=== PATIENT | female | born 1995 | race Caucasian/White ===

== ENCOUNTER 2016-12-28 18:50 | Observation (INO) | payer BC, OTHER ==
[2016-12-28] MEDS ORDERED: SODIUM CHLORIDE 0.9% 1,000 ML IV STA ×2 (20:06)
[2016-12-28] MEDS ORDERED: ONDANSETRON 4 MG/2 ML VIAL IVP STA (20:06)
[2016-12-28] MEDS ORDERED: KETOROLAC 30 MG/ML 1 ML VIAL IVP STA (20:06)
[2016-12-28 20:20] LABS: Basophils # (A) 0.1 k/uL (0-0.2); Basophils % (A) 1 %; CH 30.9; CHCM 33.2; Eosinophils # (A) 0.2 k/uL (0-0.7); Eosinophils % (A) 2 %; HDW 1.98; HGB 14.3 gm/dL (11.4-16.0); Luc # (Auto) 0.16; Luc % (Auto) 2; Lymphocytes # (A) 1.9 k/uL (1.0-4.8); Lymphocytes % (A) 19 %; MCH 29.7 pg (25.0-35.0); MCHC 31.7 g/dL (31.0-37.0); MCV 93.5 fL (80.0-100.0); Mean Platelet Volume 7.7; Monocytes # (A) 0.6 k/uL (0-1.0); Monocytes % (A) 6 %; Neutrophils # (A) 7.2 k/uL (1.3-7.7); Neutrophils % (A) 71 %; RBC 4.81 m/uL (3.80-5.40); RDW 13.2 % (11.5-15.5); WBC 10.1 k/uL (3.8-10.6); WBC (Perox) 10.21
[2016-12-28 20:30] LABS: ALT 46 U/L (9-52); AST 43 U/L (14-36); Alkaline Phosphatase 60 U/L (38-126); Amylase 53 U/L (30-110); Anion Gap 10 mmol/L; Blood Urea Nitrogen 7 mg/dL (7-17); Carbon Dioxide 26 mmol/L (22-30); Chloride 102 mmol/L (98-107); Glucose 85 mg/dL (74-99); INR 1.2 (<1.2); Non-African American GFR(MDRD) >60 (>60 ml/min/1.73 sqM); Partial Thromboplastin Time 26.2 sec (22.0-30.0); Potassium 4.1 mmol/L (3.5-5.1); Prothrombin Time 11.9 sec (9.0-12.0); Sodium 138 mmol/L (137-145); Total Bilirubin 0.5 mg/dL (0.2-1.3); Total Protein 8.2 g/dL (6.3-8.2)
[2016-12-28 20:58] LABS: Appearance,Urine Clear (Clear); Bilirubin,Urine Negative (Negative); Glucose,Urine (UA) Negative (Negative); Ketones,Urine Negative (Negative); Leukocyte Esterase,Urine Negative (Negative); Nitrite,Urine Negative (Negative); PH, Urine 5.5 (5.0-8.0); Protein,Urine Negative (Negative); Specific Gravity,Urine 1.001 (1.001-1.035); UA Billing (MACRO vs. MICRO) CHEM; Urobilinogen,Urine <2.0 mg/dL (<2.0)
--- NOTE | 2016-12-28 21:12 | ED ---
Abdominal Pain HPI <Jerry Houston - Last Filed: 12/28/16 23:10> - General Source: patient, RN notes reviewed, old records reviewed Mode of arrival: ambulatory Limitations: no limitations <Kaley Pizano - Last Filed: 12/29/16 07:02> - General Chief Complaint: Abdominal Pain Stated Complaint: Abdominal Pain Time Seen by Provider: 12/28/16 20:00 - History of Present Illness Initial Comments: Patient is a 21-year-old female presents emergency Department chief complaint of right lower quadrant cramping abdominal pain for the past 2 weeks. Patient reports she also notes she's had a headache and that is what brought her into the emergency department. She reports she's had multiple doses of vomiting and a few episodes of diarrhea. She reports that she is gluten intolerant has been watching her diet. Patient denies any fevers or chills. She denies any chest interest breath or coughing. (Kaley Pizano) - Related Data Home Medications Medication Instructions Recorded Confirmed Ciprofloxacin HCl [Cipro] 500 mg PO Q12HR 12/28/16 12/29/16 Citalopram Hydrobromide [CeleXA] 20 mg PO BID 12/28/16 12/29/16 Dextroamphetamine/Amphetamine 10 mg PO QAM 12/28/16 12/29/16 [Adderall Xr] LORazepam [Ativan] 0.5 mg PO DAILY PRN 12/28/16 12/29/16 metroNIDAZOLE [Flagyl] 500 mg PO TID 12/28/16 12/29/16 Allergies Allergy/AdvReac Type Severity Reaction Status Date / Time Sulfa (Sulfonamide Allergy Rash/Hives Verified 12/28/16 20:49 Antibiotics) Review of Systems ROS Other: All systems not noted in ROS Statement are negative. <Jerry Houston - Last Filed: 12/28/16 23:10> ROS Other: All systems not noted in ROS Statement are negative. <Kaley Pizano - Last Filed: 12/29/16 07:02> ROS Statement: Those systems with pertinent positive or pertinent negative responses have been documented in the HPI. Past Medical History Past Medical History: No Reported History History of Any Multi-Drug Resistant Organisms: None Reported Past Surgical History: Cholecystectomy Past Psychological History: Anxiety, Depression Smoking Status: Never smoker Past Alcohol Use History: Occasional Past Drug Use History: None Reported - Past Family History Father Family Medical History: Diabetes Mellitus, Hypertension <Kaley Pizano - Last Filed: 12/29/16 07:02> General Exam <Jerry Houston - Last Filed: 12/28/16 23:10> Limitations: no limitations General appearance: alert, in no apparent distress Head exam: Present: atraumatic, normocephalic, normal inspection Eye exam: Present: normal appearance, PERRL, EOMI. Absent: scleral icterus, conjunctival injection, periorbital swelling ENT exam: Present: normal exam, mucous membranes moist Neck exam: Present: normal inspection. Absent: tenderness, meningismus, lymphadenopathy Respiratory exam: Present: normal lung sounds bilaterally. Absent: respiratory distress, wheezes, rales, rhonchi, stridor Cardiovascular Exam: Present: regular rate, normal rhythm, normal heart sounds. Absent: systolic murmur, diastolic murmur, rubs, gallop, clicks GI/Abdominal exam: Present: soft, tenderness (minimal RLQ tenderness. No rebound tenderness. ), normal bowel sounds. Absent: distended, guarding, rebound, rigid Extremities exam: Present: normal inspection, full ROM, normal capillary refill. Absent: tenderness, pedal edema, joint swelling, calf tenderness Back exam: Present: normal inspection Neurological exam: Present: alert, oriented X3, CN II-XII intact Psychiatric exam: Present: normal affect, normal mood Skin exam: Present: warm, dry, intact, normal color. Absent: rash <Kaley Pizano - Last Filed: 12/29/16 07:02> - General Exam Comments Initial Comments: This is a well-appearing 21-year-old female. No acute distress. (Kaley Pizano) Medical Decision Making - Lab Data Result diagrams: 12/28/16 20:10 12/28/16 20:10 <Jerry Houston - Last Filed: 12/28/16 23:10> - Lab Data Result diagrams: 12/28/16 20:10 12/28/16 20:10 - Radiology Data Radiology results: report reviewed <Kaley Pizano - Last Filed: 12/29/16 07:02> - Medical Decision Making Patient reevaluated by myself, Dr. Houston. Patient resting comfortably in bed. Patient does have mild tenderness right lower quadrant. Computed tomography scan shows possible appendicitis. Case was discussed in detail with Dr. Srinivasan, who will admit for Dr. Lyon. (Jerry Houston) Patient is a 21-year-old female presents emergency Department chief complaint of right lower quadrant cramping abdominal pain for the past 2 weeks. Patient reports she also notes she's had a headache and that is what brought her into the emergency department. Patient given IV fluids and toradol. She was reevaluated and reports pain is somewhat better, however patient is still mildly tender on exam. Discussed possible etiology could be ocarian in nature. Patient lab work was reviewed, negative for any abnormalities. However, due to the tenderness, CT abdomen andpelvis ordered. Results show possible appendicitis. Again, patient has had symptoms for 2 weeks, and is minimally tender on exam. Discussed with Dr. Houston, whom examined the patient. Patient will be admitted to Dr. Rich, whom admits for Dr. Lyon. Patient will remain NPO. Patient admitted for IV hydration, and pain control. At this time due to negative WBC and being afebrile, we will defer antibiotics until seen by surgery. (Kaley Pizano) - Lab Data Lab Results 12/28/16 12/28/16 12/28/16 Range/Units 20:10 20:10 20:10 WBC 10.1 (3.8-10.6) k/uL RBC 4.81 (3.80-5.40) m/uL Hgb 14.3 (11.4-16.0) gm/dL Hct 45.0 (34.0-46.0) % MCV 93.5 (80.0-100.0) fL MCH 29.7 (25.0-35.0) pg MCHC 31.7 (31.0-37.0) g/dL RDW 13.2 (11.5-15.5) % Plt Count 359 (150-450) k/uL Neutrophils % 71 % Lymphocytes % 19 % Monocytes % 6 % Eosinophils % 2 % Basophils % 1 % Neutrophils # 7.2 (1.3-7.7) k/uL Lymphocytes # 1.9 (1.0-4.8) k/uL Monocytes # 0.6 (0-1.0) k/uL Eosinophils # 0.2 (0-0.7) k/uL Basophils # 0.1 (0-0.2) k/uL PT 11.9 (9.0-12.0) sec INR 1.2 H (<1.2) APTT 26.2 (22.0-30.0) sec Sodium 138 (137-145) mmol/L Potassium 4.1 (3.5-5.1) mmol/L Chloride 102 (98-107) mmol/L Carbon Dioxide 26 (22-30) mmol/L Anion Gap 10 mmol/L BUN 7 (7-17) mg/dL Creatinine 0.93 (0.52-1.04) mg/dL Est GFR (MDRD) Af Amer >60 (>60 ml/min/1.73 sqM) Est GFR (MDRD) Non-Af >60 (>60 ml/min/1.73 sqM) Glucose 85 (74-99) mg/dL Calcium 10.0 (8.4-10.2) mg/dL Total Bilirubin 0.5 (0.2-1.3) mg/dL AST 43 H (14-36) U/L ALT 46 (9-52) U/L Alkaline Phosphatase 60 (38-126) U/L Total Protein 8.2 (6.3-8.2) g/dL Albumin 4.8 (3.5-5.0) g/dL Amylase 53 (30-110) U/L Lipase 96 (23-300) U/L Urine Color Urine Appearance (Clear) Urine pH (5.0-8.0) Ur Specific [place] (1.001-1.035) Urine Protein (Negative) Urine Glucose (UA) (Negative) Urine Ketones (Negative) Urine Blood (Negative) Urine Nitrite (Negative) Urine Bilirubin (Negative) Urine Urobilinogen (<2.0) mg/dL Ur Leukocyte Esterase (Negative) Urine HCG, Qual (Not Detectd) 12/28/16 12/28/16 Range/Units 20:17 20:17 WBC (3.8-10.6) k/uL RBC (3.80-5.40) m/uL Hgb (11.4-16.0) gm/dL Hct (34.0-46.0) % MCV (80.0-100.0) fL MCH (25.0-35.0) pg MCHC (31.0-37.0) g/dL RDW (11.5-15.5) % Plt Count (150-450) k/uL Neutrophils % % Lymphocytes % % Monocytes % % Eosinophils % % Basophils % % Neutrophils # (1.3-7.7) k/uL Lymphocytes # (1.0-4.8) k/uL Monocytes # (0-1.0) k/uL Eosinophils # (0-0.7) k/uL Basophils # (0-0.2) k/uL PT (9.0-12.0) sec INR (<1.2) APTT (22.0-30.0) sec Sodium (137-145) mmol/L Potassium (3.5-5.1) mmol/L Chloride (98-107) mmol/L Carbon Dioxide (22-30) mmol/L Anion Gap mmol/L BUN (7-17) mg/dL Creatinine (0.52-1.04) mg/dL Est GFR (MDRD) Af Amer (>60 ml/min/1.73 sqM) Est GFR (MDRD) Non-Af (>60 ml/min/1.73 sqM) Glucose (74-99) mg/dL Calcium (8.4-10.2) mg/dL Total Bilirubin (0.2-1.3) mg/dL AST (14-36) U/L ALT (9-52) U/L Alkaline Phosphatase (38-126) U/L Total Protein (6.3-8.2) g/dL Albumin (3.5-5.0) g/dL Amylase (30-110) U/L Lipase (23-300) U/L Urine Color Light Yellow Urine Appearance Clear (Clear) Urine pH 5.5 (5.0-8.0) Ur Specific [place] 1.001 (1.001-1.035) Urine Protein Negative (Negative) Urine Glucose (UA) Negative (Negative) Urine Ketones Negative (Negative) Urine Blood Negative (Negative) Urine Nitrite Negative (Negative) Urine Bilirubin Negative (Negative) Urine Urobilinogen <2.0 (<2.0) mg/dL Ur Leukocyte Esterase Negative (Negative) Urine HCG, Qual Not Detected (Not Detectd) - Radiology Data Nonacute abdomen. No evidence of intestinal obstruction or pneumoperitoneum. The appendix is visualized. The distal portion of the appendix is mildly prominent in caliber at 8 mm. The lumen of the apex appendix is opacified. No periappendiceal inflammatory changes seen. Appendix is seen images 20 for 3:30 with prominent portion of the distal appendix seen on image 24. Meningitis findings are equivocal for appendicitis. Clinical correlation is needed. ( Kaley Pizano) Disposition <Jerry Houston - Last Filed: 12/28/16 23:10> Time of Disposition: 23:13 <Kaley Pizano - Last Filed: 12/29/16 07:02> Clinical Impression: Abdominal pain Disposition: ADMITTED IP TO THIS HOSP Condition: Stable
--- NOTE | 2016-12-28 21:18 | XR ---
EXAMINATION TYPE: XR KUB DATE OF EXAM: 12/28/2016 COMPARISON: NONE HISTORY: Right upper quadrant pain TECHNIQUE: 2 views FINDINGS: There is no sign of intestinal obstruction or pneumoperitoneum. Fecal pattern is normal. Demi ng bases are clear. There are no pathologic calcifications over the kidneys. IMPRESSION: Nonacute abdomen.
[2016-12-28] MEDS ORDERED: RX INFO: IV CONTRAST WAS GIVEN 1 EACH MISC MISCELLANE PRN (21:53)
--- NOTE | 2016-12-28 22:55 | CT ---
EXAM: CT Abdomen and Pelvis With Intravenous Contrast CLINICAL HISTORY: Reason: Pain TECHNIQUE: Axial computed tomography images of the abdomen and pelvis with intravenous contrast. DLP is 409.30 mGy-cm. This CT exam was performed using one or more of the following dose reduction techniques: automated exposure control, adjustment of the mA and/or kV according to patient size, and/or use of iterative reconstruction technique. COMPARISON: The only previous exam is a plain film from same date. FINDINGS: Cholecystectomy. Possible focal fat in region of falciform ligament. No evidence for acute pancreatitis or other significant abnormality of the solid abdominal viscera is appreciated. Suspected ovarian follicles. No bowel obstruction. There is prominent fluid in the GI tract including the colon. May represent findings of enteritis/diarrheal illness. The appendix is visualized. The distal portion of the appendix is mildly prominent in caliber at about 8 mm. Lumen of the appendix is opacified. No periappendiceal inflammatory changes seen. IMPRESSION: The appendix is visualized. The distal portion of the appendix is mildly prominent in caliber at about 8 mm. Lumen of appendix is opacified. No periappendiceal inflammatory changes seen. Appendix is seen on images 24 through 30 coronal with the prominent portion of the distal appendix seen on image 24. Imaging findings are equivocal for appendicitis. Clinical correlation is needed. No bowel obstruction. There is prominent fluid in the GI tract including the colon. May represent findings of enteritis/diarrheal illness. [employer] 12/28/16 23:01 Verify Receipt Verified receipt with BILL Rai, given to aKley LEDESMA on 12/28 23:00 (-04:00)
[2016-12-28] MEDS ORDERED: LORazepam 2 MG/ML SYRINGE IV PRN (23:14)
[2016-12-28] MEDS ORDERED: MORPHINE SULFATE 4 MG/ML SYRINGE IV PRN (23:14)
[2016-12-28] MEDS ORDERED: ONDANSETRON 4 MG/2 ML VIAL IVP PRN (23:14)
[2016-12-28] MEDS ORDERED: NALOXONE 0.4 MG/ML 1 ML VIAL IV PRN (23:14)
[2016-12-28] MEDS ORDERED: SODIUM CHLORIDE 0.9% 1,000 ML IV SCH (23:15)
[2016-12-29 00:33] VITALS: BMI 24.6
[2016-12-29] MEDS: KETOROLAC 30 MG/ML 1 ML VIAL IVP PRN ×2 (05:54→11:40)
[2016-12-29] MEDS ORDERED: ACETAMINOPHEN IV (For NPO) 1,000 MG in EMPTY BAG 1 BAG IVPB ONE (07:11)
[2016-12-29] MEDS ORDERED: HEPARIN SODIUM,PORCINE 5,000 UNIT/ML 1 ML VIAL SQ ONE (07:11)
[2016-12-29] MEDS ORDERED: ceFAZolin 2 GM in SODIUM CHLORIDE 0.9% 100 ML IVPB ONE (07:11)
[2016-12-29] MEDS ORDERED: IV FLUID CONTINUATION 1,000 ML IV ONE (08:14)
--- NOTE | 2016-12-29 08:14 | P.GSHP ---
History of Present Illness H&P Date: 12/29/16 CHIEF COMPLAINT: Right lower quadrant abdominal pain for 2 weeks. HISTORY OF PRESENT ILLNESS: The patient is a previously healthy 21-year-old female who presents of right lower quadrant abdominal pain. She had seen her primary care provider who placed her on Flagyl antibiotic for presumed colitis. Her pain had become worse and she presented to the emergency room. Additional diagnostic studies were performed. She presented with CT abdomen and pelvis consistent with dilated appendix suspicious for appendicitis hence general surgery admission. PAST MEDICAL HISTORY: See list. PAST SURGICAL HISTORY: See list. CURRENT MEDICATIONS: See list. ALLERGIES: DENIES. SOCIAL HISTORY: Non-tobacco user. FAMILY HISTORY: Previous history of colitis. REVIEW OF ORGAN SYSTEMS: CONSTITUTIONAL: Denies any fever or chills. HEENT: Denies any trouble with vision, hearing or nosebleeds. No difficulty swallowing. LYMPHATIC: The patient denies any lumps and bumps around the neck. ENDOCRINE: Denies any thyroid disorders. Denies any blood sugar glucose intolerance. RESPIRATORY: Denies shortness of breath including chronic cough. CARDIOVASCULAR: Denies history of chest pain with exertion. GASTROINTESTINAL: Denies regurgitation of bile at night as well as intermittent nausea. No blood in stools. GENITOURINARY: Denies any blood in urine or increased urinary frequency. MUSCULOSKELETAL: Has current joint arthritis. NEUROLOGIC: Denies any numbness or tingling along the distal extremities. No seizure disorders or headaches. PSYCHIATRIC: Has depression. No suicidal ideation. Has ADHD. HEMATOLOGIC: Denies any abnormal bleeding or bruising. PHYSICAL EXAMINATION: Vital Signs Temp 98.3 F 12/29/16 07:10 Pulse 64 12/29/16 07:10 Resp 18 12/29/16 07:10 BP 114/58 12/29/16 07:10 Pulse Ox 100 12/29/16 07:10 Intake & Output 12/28/16 12/29/16 12/29/16 18:59 06:59 18:59 Output Total 200 Balance -200 Weight 65.771 kg 67.132 kg Output: Urine 200 Other: # Voids 1 GENERAL: Well developed and in no acute distress. Pleasant. HEENT: No sclera icterus. Extraocular movements grossly intact. Moist buccal mucosa. Head is atraumatic, normocephalic. Hears conversational speech. No nasal drainage. NECK: Supple without lymphadenopathy. No JV distention. CHEST: Non-labored respirations and equal bilateral excursions. CARDIOVASCULAR: Regular rate and rhythm. Palpable 2+ radial pulses. ABDOMEN: Soft, tender at the right lower quadrant. No peritonitis. MUSCULOSKELETAL: No clubbing, cyanosis or edema. NEUROLOGIC: No focal or lateralizing signs. PSYCH: Appropriate affect. Alert and oriented to person, place and time. LABS: Laboratory Last Values WBC 10.1 k/uL (3.8-10.6) 12/28/16 20:10 RBC 4.81 m/uL (3.80-5.40) 12/28/16 20:10 Hgb 14.3 gm/dL (11.4-16.0) 12/28/16 20:10 Hct 45.0 % (34.0-46.0) 12/28/16 20:10 MCV 93.5 fL (80.0-100.0) 12/28/16 20:10 MCH 29.7 pg (25.0-35.0) 12/28/16 20:10 MCHC 31.7 g/dL (31.0-37.0) 12/28/16 20:10 RDW 13.2 % (11.5-15.5) 12/28/16 20:10 Plt Count 359 k/uL (150-450) 12/28/16 20:10 Neutrophils % 71 % 12/28/16 20:10 Lymphocytes % 19 % 12/28/16 20:10 Monocytes % 6 % 12/28/16 20:10 Eosinophils % 2 % 12/28/16 20:10 Basophils % 1 % 12/28/16 20:10 Neutrophils # 7.2 k/uL (1.3-7.7) 12/28/16 20:10 Lymphocytes # 1.9 k/uL (1.0-4.8) 12/28/16 20:10 Monocytes # 0.6 k/uL (0-1.0) 12/28/16 20:10 Eosinophils # 0.2 k/uL (0-0.7) 12/28/16 20:10 Basophils # 0.1 k/uL (0-0.2) 12/28/16 20:10 PT 11.9 sec (9.0-12.0) 12/28/16 20:10 INR 1.2 (<1.2) H 12/28/16 20:10 APTT 26.2 sec (22.0-30.0) 12/28/16 20:10 Sodium 138 mmol/L (137-145) 12/28/16 20:10 Potassium 4.1 mmol/L (3.5-5.1) 12/28/16 20:10 Chloride 102 mmol/L (98-107) 12/28/16 20:10 Carbon Dioxide 26 mmol/L (22-30) 12/28/16 20:10 Anion Gap 10 mmol/L 12/28/16 20:10 BUN 7 mg/dL (7-17) 12/28/16 20:10 Creatinine 0.93 mg/dL (0.52-1.04) 12/28/16 20:10 Est GFR (MDRD) Af Amer >60 (>60 ml/min/1.73 sqM) 12/28/16 20:10 Est GFR (MDRD) Non-Af >60 (>60 ml/min/1.73 sqM) 12/28/16 20:10 Glucose 85 mg/dL (74-99) 12/28/16 20:10 Calcium 10.0 mg/dL (8.4-10.2) 12/28/16 20:10 Total Bilirubin 0.5 mg/dL (0.2-1.3) 12/28/16 20:10 AST 43 U/L (14-36) H 12/28/16 20:10 ALT 46 U/L (9-52) 12/28/16 20:10 Alkaline Phosphatase 60 U/L (38-126) 12/28/16 20:10 Total Protein 8.2 g/dL (6.3-8.2) 12/28/16 20:10 Albumin 4.8 g/dL (3.5-5.0) 12/28/16 20:10 Amylase 53 U/L (30-110) 12/28/16 20:10 Lipase 96 U/L (23-300) 12/28/16 20:10 Urine Color Light Yellow 12/28/16 20:17 Urine Appearance Clear (Clear) 12/28/16 20:17 Urine pH 5.5 (5.0-8.0) 12/28/16 20:17 Ur Specific [place] 1.001 (1.001-1.035) 12/28/16 20:17 Urine Protein Negative (Negative) 12/28/16 20:17 Urine Glucose (UA) Negative (Negative) 12/28/16 20:17 Urine Ketones Negative (Negative) 12/28/16 20:17 Urine Blood Negative (Negative) 12/28/16 20:17 Urine Nitrite Negative (Negative) 12/28/16 20:17 Urine Bilirubin Negative (Negative) 12/28/16 20:17 Urine Urobilinogen <2.0 mg/dL (<2.0) 12/28/16 20:17 Ur Leukocyte Esterase Negative (Negative) 12/28/16 20:17 Urine HCG, Qual Not Detected (Not Detectd) 12/28/16 20:17 STUDIES: CT of the abdomen and pelvis reviewed with findings consistent with dilated appendix with appendicolith. ASSESSMENT: 1. Right lower quadrant pain. 2. Appendicitis. PLAN: 1. I have discussed benefits and risks of laparoscopic appendectomy. 2. Bilateral SCDs. 3. Antibiotics. 4. DVT prophylaxis with heparin. 5. GI prophylaxis. Thank you very much for allowing me to participate in the care of your patient. Past Medical History Past Medical History: No Reported History History of Any Multi-Drug Resistant Organisms: None Reported Past Surgical History: Cholecystectomy Past Psychological History: Anxiety, Depression Smoking Status: Never smoker Past Alcohol Use History: Occasional Past Drug Use History: None Reported - Past Family History Father Family Medical History: Diabetes Mellitus, Hypertension Medications and Allergies Home Medications Medication Instructions Recorded Confirmed Type Ciprofloxacin HCl [Cipro] 500 mg PO Q12HR 12/28/16 12/29/16 History Citalopram Hydrobromide [CeleXA] 20 mg PO BID 12/28/16 12/29/16 History Dextroamphetamine/Amphetamine 10 mg PO QAM 12/28/16 12/29/16 History [Adderall Xr] LORazepam [Ativan] 0.5 mg PO DAILY PRN 12/28/16 12/29/16 History metroNIDAZOLE [Flagyl] 500 mg PO TID 12/28/16 12/29/16 History Allergies Allergy/AdvReac Type Severity Reaction Status Date / Time Sulfa (Sulfonamide Allergy Rash/Hives Verified 12/28/16 20:49 Antibiotics) Surgical - Exam Vital Signs Temp Pulse Resp BP Pulse Ox 97.3 F L 103 H 16 118/68 100 12/28/16 18:51 12/28/16 18:51 12/28/16 18:51 12/28/16 18:51 12/28/16 18:51 Results - Labs 12/28/16 20:10 12/28/16 20:10 Abnormal Lab Results - Last 24 Hours (Table) 12/28/16 12/28/16 Range/Units 20:10 20:10 INR 1.2 H (<1.2) AST 43 H (14-36) U/L Diabetes panel 12/28/16 Range/Units 20:10 Sodium 138 (137-145) mmol/L Potassium 4.1 (3.5-5.1) mmol/L Chloride 102 (98-107) mmol/L Carbon Dioxide 26 (22-30) mmol/L BUN 7 (7-17) mg/dL Creatinine 0.93 (0.52-1.04) mg/dL Glucose 85 (74-99) mg/dL Calcium 10.0 (8.4-10.2) mg/dL AST 43 H (14-36) U/L ALT 46 (9-52) U/L Alkaline Phosphatase 60 (38-126) U/L Total Protein 8.2 (6.3-8.2) g/dL Albumin 4.8 (3.5-5.0) g/dL Calcium panel 12/28/16 Range/Units 20:10 Calcium 10.0 (8.4-10.2) mg/dL Albumin 4.8 (3.5-5.0) g/dL Pituitary panel 12/28/16 Range/Units 20:10 Sodium 138 (137-145) mmol/L Potassium 4.1 (3.5-5.1) mmol/L Chloride 102 (98-107) mmol/L Carbon Dioxide 26 (22-30) mmol/L BUN 7 (7-17) mg/dL Creatinine 0.93 (0.52-1.04) mg/dL Glucose 85 (74-99) mg/dL Calcium 10.0 (8.4-10.2) mg/dL Adrenal panel 12/28/16 Range/Units 20:10 Sodium 138 (137-145) mmol/L Potassium 4.1 (3.5-5.1) mmol/L Chloride 102 (98-107) mmol/L Carbon Dioxide 26 (22-30) mmol/L BUN 7 (7-17) mg/dL Creatinine 0.93 (0.52-1.04) mg/dL Glucose 85 (74-99) mg/dL Calcium 10.0 (8.4-10.2) mg/dL Total Bilirubin 0.5 (0.2-1.3) mg/dL AST 43 H (14-36) U/L ALT 46 (9-52) U/L Alkaline Phosphatase 60 (38-126) U/L Total Protein 8.2 (6.3-8.2) g/dL Albumin 4.8 (3.5-5.0) g/dL
[2016-12-29] MEDS ORDERED: ONDANSETRON 4 MG/2 ML VIAL IVP ONE ×2 (08:35→11:00)
[2016-12-29] MEDS ORDERED: DEXAMETHASONE SOD PHOSPHATE 10 MG/ML 1 ML VIAL IV ONE (08:36)
[2016-12-29] MEDS ORDERED: NEOSTIGMINE 1 MG/ML 10 ML VIAL ONE (08:42)
[2016-12-29] MEDS ORDERED: LIDOCAINE 1% INJ 10MG/ML (20 ML MDV) ONE (08:42)
[2016-12-29] MEDS ORDERED: HYDROmorphone (PF) 1 MG/ML ONE (08:42)
[2016-12-29] MEDS ORDERED: ROCURONIUM BROMIDE 10 MG/ML 10 ML VIAL IV ONE (08:42)
[2016-12-29] MEDS ORDERED: fentaNYL (PF) 50 MCG/ML 2 ML AMP ONE (08:42)
[2016-12-29] MEDS ORDERED: PROPOFOL 10 MG/ML 20 ML VIAL IV ONE (08:42)
[2016-12-29] MEDS ORDERED: GLYCOPYRROLATE 0.2 MG/ML 2 ML VIAL ONE (08:42)
[2016-12-29] MEDS ORDERED: MIDAZOLAM 2 MG/2 ML VIAL ONE (08:42)
[2016-12-29] MEDS ORDERED: SUCCINYLCHOLINE CHLORIDE 100 MG/5 ML SYR IV ONE (08:42)
[2016-12-29] MEDS ORDERED: PANTOPRAZOLE 40 MG/10 ML VIAL IV SCH (09:00)
[2016-12-29] MEDS ORDERED: BUPIVACAINE-EPI 0.5%-1:200,000 10 ML VIAL SQ ONE (09:06)
--- NOTE | 2016-12-29 09:37 | P.PCN ---
Date of Procedure: 12/29/16 Preoperative Diagnosis: Acute appendicitis Postoperative Diagnosis: Acute appendicitis Procedure(s) Performed: Laparoscopic appendectomy Implants: Anesthesia: GETA, local Surgeon: Cecelia oWody Estimated Blood Loss (ml): 5 Pathology: other (Appendix) Condition: stable Disposition: floor Indications for Procedure: Operative Findings: Acute appendicitis involving the tip without rupture. No bilateral inguinal hernia. Incisions placed along the Pfannenstiel line. Her mother was directly contacted regarding disposition from surgery. Description of Procedure:
--- NOTE | 2016-12-29 09:40 | P.PN ---
Progress Note - Text To Whom It May Concern: Kaley Kirkland is under my general surgical care. She was hospitalized and had recent surgery. She'll need at least 2 weeks of recovery through January 12. Should you have any questions, feel free to contact us at [phone]. Regards, Cecelia Woody M.D.
[2016-12-29] MEDS ORDERED: LACTATED RINGERS 1,000 ML IV ONE (09:55)
[2016-12-29 10:24] VITALS: RESP 16
[2016-12-29] MEDS: HYDROmorphone 1 MG/ML 1 ML SYRINGE IVP ONE ×2 (10:35→10:43)
[2016-12-29] MEDS ORDERED: HYDROcodone/APAP 5-325MG 1 EACH TAB PO PRN (10:58)
[2016-12-29 12:46] LABS: Glucose,Whole Blood 112 mg/dL (75-99)
[2016-12-29 17:55] VITALS: BP 111/70; PULSE 59; TEMP 97
== END 2016-12-29 17:00 | disposition home or self-care (01) ==
LOC: EC 18:50 → 6PED 23:13
PROVIDERS: ADMIT Surgery Plastic and Reconstructive Surgery; ATTEND Surgery Plastic and Reconstructive Surgery
DX: K35.80 Unspecified acute appendicitis (principal); K90.41 Non-celiac gluten sensitivity; R51 Headache; F41.9 Anxiety disorder, unspecified; F32.9 Major depressive disorder, single episode, unspecified; Z79.899 Other long term (current) drug therapy; Z88.2 Allergy status to sulfonamides; Z83.3 Family history of diabetes mellitus; Z82.49 Family history of ischemic heart disease and other diseases of the circulatory system
CPT/HCPCS: 44970; 99285; 96374 ×2; 96375 ×2; 96361 ×6; 96372; 96376; 36415; 88304; 80053; 82150; 83690; 85025; 85610; 85730; 81003; 81025; 74000; 74177; G0378 ×2; J2250; J1644; J1100; J2710; J0690; J2405 ×2; J2001; J3010; J1885 ×2; J1170; Q9967; J0330; J2704; C9113

== ENCOUNTER 2017-11-09 18:03 | Emergency (ER) | payer OTHER ==
[2017-11-09 18:12] VITALS: RESP 16
[2017-11-09 19:17] LABS: Basophils # (A) 0.1 k/uL (0-0.2); Basophils % (A) 0 %; Eosinophils # (A) 0.3 k/uL (0-0.7); Eosinophils % (A) 2 %; HCT 40.2 % (34.0-46.0); HGB 13.4 gm/dL (11.4-16.0); Lymphocytes # (A) 2.7 k/uL (1.0-4.8); Lymphocytes % (A) 19 %; MCH 29.6 pg (25.0-35.0); MCHC 33.5 g/dL (31.0-37.0); MCV 88.6 fL (80.0-100.0); Mean Platelet Volume 7.8; Monocytes # (A) 0.7 k/uL (0-1.0); Monocytes % (A) 5 %; Neutrophils # (A) 10.4 k/uL (1.3-7.7); Neutrophils % (A) 72 %; Platelet Count 333 k/uL (150-450); RBC 4.53 m/uL (3.80-5.40); RDW 12.6 % (11.5-15.5); WBC 14.4 k/uL (3.8-10.6)
--- NOTE | 2017-11-09 19:17 | ED ---
General Adult HPI - General Chief complaint: Vaginal Bleeding Stated complaint: POSS MISCARRAGE Time Seen by Provider: 11/09/17 18:36 Source: patient, RN notes reviewed Mode of arrival: ambulatory Limitations: no limitations - History of Present Illness Initial comments: 22-year-old female presents emergency Department chief complaint of vaginal bleeding in early . Patient states that she is A0 and currently 6 weeks started having some spotting last night which has filled 1 pad last night and one pad today. Patient states that she is unsure what blood type she has. Patient denies any back pain, flank pain. Patient denies any nausea vomiting diarrhea constipation. She does admit to some abdominal cramping. Patient states that she attempted a scheduled appointment with Dr. Dr. Knight though she is waiting phone call back. - Related Data Home Medications Medication Instructions Recorded Confirmed Citalopram Hydrobromide [CeleXA] 20 mg PO DAILY 12/28/16 11/09/17 Dextroamphetamine/Amphetamine 20 mg PO DAILY 11/09/17 11/09/17 [Adderall] Pnv No.95/Ferrous Fum/Folic AC 1 tab PO DAILY 11/09/17 11/09/17 [ Multivitamin Tablet] Allergies Allergy/AdvReac Type Severity Reaction Status Date / Time Sulfa (Sulfonamide Allergy Rash/Hives Verified 11/09/17 18:41 Antibiotics) gluten AdvReac Nausea Verified 11/09/17 18:41 Review of Systems ROS Statement: Those systems with pertinent positive or pertinent negative responses have been documented in the HPI. ROS Other: All systems not noted in ROS Statement are negative. Past Medical History Past Medical History: No Reported History History of Any Multi-Drug Resistant Organisms: None Reported Past Surgical History: Appendectomy, Cholecystectomy Past Psychological History: Anxiety, Depression Smoking Status: Never smoker Past Alcohol Use History: Occasional Past Drug Use History: None Reported - Past Family History Father Family Medical History: Diabetes Mellitus, Hypertension General Exam Limitations: no limitations General appearance: alert, in no apparent distress Respiratory exam: Present: normal lung sounds bilaterally. Absent: respiratory distress, wheezes, rales, rhonchi, stridor Cardiovascular Exam: Present: regular rate, normal rhythm, normal heart sounds. Absent: systolic murmur, diastolic murmur, rubs, gallop, clicks GI/Abdominal exam: Present: soft, tenderness (Mild lower abdominal tenderness), normal bowel sounds. Absent: distended, guarding, rebound, rigid Skin exam: Present: warm, dry, intact, normal color. Absent: rash Course Vital Signs 11/09/17 18:08 Temperature 98.3 F Pulse Rate 96 Respiratory 16 Rate Blood Pressure 135/82 O2 Sat by Pulse 100 Oximetry Medical Decision Making - Medical Decision Making This is a 22-year-old female presented from it for vaginal bleeding in early . Patient diagnosed with threatened miscarriage. Patient's hCG is currently 68. I did explain this is very low for early and that her ultrasound did not show a gestational sac or any other acute abnormality's. Patient will have repeat hCG in 48 hours and she is advised follow-up with OB/ REHABIL[facility] INSPECTOR. Patient did receive RhoGAM in the emergency department and she is A- blood type. - Lab Data Result diagrams: 11/09/17 19:07 11/09/17 19:07 Lab Results 11/09/17 11/09/17 11/09/17 Range/Units 14:28 19:00 19:07 WBC 14.4 H (3.8-10.6) k/uL RBC 4.53 (3.80-5.40) m/uL Hgb 13.4 (11.4-16.0) gm/dL Hct 40.2 (34.0-46.0) % MCV 88.6 (80.0-100.0) fL MCH 29.6 (25.0-35.0) pg MCHC 33.5 (31.0-37.0) g/dL RDW 12.6 (11.5-15.5) % Plt Count 333 (150-450) k/uL Neutrophils % 72 % Lymphocytes % 19 % Monocytes % 5 % Eosinophils % 2 % Basophils % 0 % Neutrophils # 10.4 H (1.3-7.7) k/uL Lymphocytes # 2.7 (1.0-4.8) k/uL Monocytes # 0.7 (0-1.0) k/uL Eosinophils # 0.3 (0-0.7) k/uL Basophils # 0.1 (0-0.2) k/uL Sodium (137-145) mmol/L Potassium (3.5-5.1) mmol/L Chloride (98-107) mmol/L Carbon Dioxide (22-30) mmol/L Anion Gap mmol/L BUN (7-17) mg/dL Creatinine (0.52-1.04) mg/dL Est GFR (CKD-EPI)AfAm (>60 ml/min/1.73 sqM) Est GFR (CKD-EPI)NonAf (>60 ml/min/1.73 sqM) Glucose (74-99) mg/dL Calcium (8.4-10.2) mg/dL HCG, Quant 68.2 mIU/mL Urine Color Urine Appearance (Clear) Urine pH (5.0-8.0) Ur Specific [place] (1.001-1.035) Urine Protein (Negative) Urine Glucose (UA) (Negative) Urine Ketones (Negative) Urine Blood (Negative) Urine Nitrite (Negative) Urine Bilirubin (Negative) Urine Urobilinogen (<2.0) mg/dL Ur Leukocyte Esterase (Negative) Urine RBC (0-5) /hpf Urine WBC (0-5) /hpf Ur Squamous Epith Cells (0-4) /hpf Blood Type A Negative Blood Type Recheck No 11/09/17 11/09/17 Range/Units 19:07 19:09 WBC (3.8-10.6) k/uL RBC (3.80-5.40) m/uL Hgb (11.4-16.0) gm/dL Hct (34.0-46.0) % MCV (80.0-100.0) fL MCH (25.0-35.0) pg MCHC (31.0-37.0) g/dL RDW (11.5-15.5) % Plt Count (150-450) k/uL Neutrophils % % Lymphocytes % % Monocytes % % Eosinophils % % Basophils % % Neutrophils # (1.3-7.7) k/uL Lymphocytes # (1.0-4.8) k/uL Monocytes # (0-1.0) k/uL Eosinophils # (0-0.7) k/uL Basophils # (0-0.2) k/uL Sodium 141 (137-145) mmol/L Potassium 4.1 (3.5-5.1) mmol/L Chloride 107 (98-107) mmol/L Carbon Dioxide 19 L (22-30) mmol/L Anion Gap 15 mmol/L BUN 10 (7-17) mg/dL Creatinine 0.70 (0.52-1.04) mg/dL Est GFR (CKD-EPI)AfAm >90 (>60 ml/min/1.73 sqM) Est GFR (CKD-EPI)NonAf >90 (>60 ml/min/1.73 sqM) Glucose 91 (74-99) mg/dL Calcium 10.0 (8.4-10.2) mg/dL HCG, Quant mIU/mL Urine Color Light Yellow Urine Appearance Clear (Clear) Urine pH 6.0 (5.0-8.0) Ur Specific [place] 1.006 (1.001-1.035) Urine Protein Negative (Negative) Urine Glucose (UA) Negative (Negative) Urine Ketones Negative (Negative) Urine Blood Moderate H (Negative) Urine Nitrite Negative (Negative) Urine Bilirubin Negative (Negative) Urine Urobilinogen <2.0 (<2.0) mg/dL Ur Leukocyte Esterase Negative (Negative) Urine RBC <1 (0-5) /hpf Urine WBC 1 (0-5) /hpf Ur Squamous Epith Cells <1 (0-4) /hpf Blood Type Blood Type Recheck Disposition Clinical Impression: Threatened miscarriage in early Disposition: HOME SELF-CARE Condition: Stable Instructions: Threatened Miscarriage (ED) Additional Instructions: Please return to the Emergency Department if symptoms worsen or any other concerns. Is patient prescribed a controlled substance at d/c from ED?: No Referrals: Chandana Lyon DO [Primary Care Provider] - 1-2 days
[2017-11-09 19:31] LABS: Anion Gap 15 mmol/L; Blood Urea Nitrogen 10 mg/dL (7-17); Carbon Dioxide 19 mmol/L (22-30); Chloride 107 mmol/L (98-107); Glucose 91 mg/dL (74-99); Potassium 4.1 mmol/L (3.5-5.1); Sodium 141 mmol/L (137-145)
--- NOTE | 2017-11-09 19:45 | US ---
EXAMINATION TYPE: Transabdominal DATE OF EXAM: 08/17/17 COMPARISON: NONE CLINICAL HISTORY: Pain. Cramping and bleeding. EXAM PERFORMED: Transabdominal (TA) EXAM MEASUREMENTS: GESTATIONAL AGE / DATING Physician Established: (6 weeks/0 days) EDC: 07/05/2018 Dates by LMP: (6 weeks/0 days) EDC: 07/05/2018 Dates by First Scan: No previous this is first scan Dates by Current Scan for: No IUP seen at this time MATERNAL ANATOMY Uterus: 8.9 x 3.8 x 4.4 cm Right Ovary: 2.1 x 1.6 x 1.4 cm Left Ovary: 2.1 x 1.5 x 1.4 cm Post CDS / Adnexa: wnl Presence of free fluid: no Presence of corpus luteal cyst: no GESTATION / SURVEY IUP: No IUP seen at this time Date of LMP: 09/28/2017 Beta HcG (if available): Not available at this time No IUP seen at this time. IMPRESSION: Uterus is empty. No adnexal mass or free fluid. Normal uterus and endometrium.
[2017-11-09 19:53] LABS: Appearance,Urine Clear (Clear); Bilirubin,Urine Negative (Negative); Blood,Urine Moderate (Negative); Color,Urine Light Yellow; Glucose,Urine (UA) Negative (Negative); Ketones,Urine Negative (Negative); Leukocyte Esterase,Urine Negative (Negative); Nitrite,Urine Negative (Negative); Protein,Urine Negative (Negative); RBC,Urine <1 /hpf (0-5); Specific Gravity,Urine 1.006 (1.001-1.035); Squamous Epithelial Cell,Urine <1 /hpf (0-4); Urobilinogen,Urine <2.0 mg/dL (<2.0); WBC,Urine 1 /hpf (0-5)
[2017-11-09] MEDS ORDERED: Rhogam IMMUNE GLOBULIN 1,500 UNIT/1 ML IM ONE (20:21)
[2017-11-09 21:12] VITALS: BP 124/58; PULSE 72; TEMP 99
== END 2017-11-09 21:15 | disposition home or self-care (01) ==
LOC: EC 18:03
DX: O20.0 Threatened abortion (principal); O99.341 Other mental disorders complicating pregnancy, first trimester; F41.9 Anxiety disorder, unspecified; F32.9 Major depressive disorder, single episode, unspecified; Z3A.01 Less than 8 weeks gestation of pregnancy; Z90.49 Acquired absence of other specified parts of digestive tract; Z79.899 Other long term (current) drug therapy; Z88.2 Allergy status to sulfonamides; Z91.018 Allergy to other foods
CPT/HCPCS: 99284; 96372; 36415; 86900; 86901; 80048; 85025; 86850; 81001; 84702; 76801; J2791

== ENCOUNTER → 2017-11-11 | Outpatient (CLI) | payer OTHER | END | disposition home or self-care (01) | LOC: LABMAIN 19:43 | PROVIDERS: ATTEND Physician Assistant | DX: O20.0 Threatened abortion (principal); Z3A.00 Weeks of gestation of pregnancy not specified | CPT/HCPCS: 36415; 84702 ==

== ENCOUNTER 2018-07-25 06:30 | Inpatient (IN) | payer OTHER ==
[2018-07-25] MEDS ORDERED: MISOPROSTOL 25 MCG TAB VAGINAL PRN (15:49)
--- NOTE | 2018-07-25 15:57 | P.HPOB ---
History of Present Illness H&P Date: 07/25/18 This is a 23-year-old white female 2 para 0010 EDC 08/14/2018 at 37 and one sevenths weeks' gestation. Patient presents today for Cytotec induction with unfavorable cervix and the diagnosis of cholestasis of . This was diagnosed last week with elevated fasting bile acids, checked secondary to patient's complaint of intense lower extremity and lower abdominal itching. Fetus has been active. Reactive NST is noted today. She has been having irregular mild uterine contractions. Past medical history is significant for anxiety, attention deficit disorder, celiac disease, cholelithiasis, and depression. Past surgical history is significant for cholecystectomy in 2010, appendectomy 2016. Social history is negative for tobacco and alcohol use, patient is single, boyfriend is attentive and at the bedside. Reproductive history significant for missed AB in 2018, no D&C needed. Obstetric history group B strep cultures negative. Blood tape A-, antibody screen negative. Hemoglobin 12.8, Pap smear revealing atypical squamous cells with positive HPV. Rubella status immune. VDRL nonreactive. Hepatitis B surface antigen, HIV testing, urine culture, gonorrhea and chlamydia cultures all negative. One-hour Glucola 138. On exam this is a pleasant white female, she is 5 foot 4 inches, 165 pounds, vital signs are stable and she is afebrile. The general physical exam is within normal limits. The chest is clear in all suazo. Extremities reveal no edema. Cervix is 1 cm dilated, 50% effaced, vertex presentation, moderate consistency, posterior. heart rate is consistent with reactive NST. Cytotec 25 MCG's is placed behind the cervix. Impression: 37 and one sevenths weeks intrauterine , cholestasis of diagnosed by elevated fasting bile acids, here for induction of labor with unfavorable cervix. Plan: Cytotec 25 MCG's every 3 hours for 1 or 2 more doses pending clinical progress. Nothing by mouth after midnight. Will check AST, ALTs, uric acid, PT and PTT with admission labs. Plan on oxytocin induction in the morning with art ificial amniorrhexis. Continue close maternal and surveillance. Review of Systems Constitutional: Reports as per HPI Past Medical History Past Medical History: No Reported History Additional Past Medical History / Comment(s): Anxiety and depression, ADD History of Any Multi-Drug Resistant Organisms: None Reported Past Surgical History: Appendectomy, Cholecystectomy Past Psychological History: Anxiety, Depression Smoking Status: Never smoker Past Alcohol Use History: Occasional Past Drug Use History: None Reported - Past Family History Father Family Medical History: Diabetes Mellitus, Hypertension Medications and Allergies Home Medications Medication Instructions Recorded Confirmed Type Citalopram Hydrobromide [CeleXA] 20 mg PO DAILY 12/28/16 11/09/17 History Dextroamphetamine/Amphetamine 20 mg PO DAILY 11/09/17 11/09/17 History [Adderall] Pnv No.95/Ferrous Fum/Folic AC 1 tab PO DAILY 11/09/17 11/09/17 History [ Multivitamin Tablet] Allergies Allergy/AdvReac Type Severity Reaction Status Date / Time Sulfa (Sulfonamide Allergy Rash/Hives Verified 07/25/18 15:48 Antibiotics) sulfamethoxazole Allergy Rash/Hives Verified 07/25/18 15:48 [From Bactrim] trimethoprim [From Bactrim] Allergy Rash/Hives Verified 07/25/18 15:48 gluten AdvReac Nausea Verified 07/25/18 15:48 Exam Intake and Output 07/25/18 07/25/18 07/25/18 06:59 14:59 22:59 Other: Weight 74.843 kg See dictation under HPI please - OBG Physical Exam Rash on the lower extremities and lower abdomen. Assessment and Plan Assessment: 37 and one sevenths weeks intrauterine , cholestasis of with unfavorable nulliparous cervix. Here for Cytotec induction. All risks and benefits have been discussed thoroughly in the office. Plan: Cytotec intravaginally 25 mcg every 3 hours for 2-3 doses. Clear liquids at this time. Nothing by mouth after midnight, may start IV access in the morning. Plan on artificial amniorrhexis and oxytocin tomorrow morning, with vaginal delivery anticipated. Time with Patient: Greater than 30
[2018-07-25] MEDS ORDERED: MISOPROSTOL 100 MCG TAB VAGINAL PRN (16:00)
[2018-07-25] MEDS ORDERED: LACTATED RINGERS 1,000 ML IV SCH (16:00)
[2018-07-25] MEDS ORDERED: MISOPROSTOL 100 MCG TAB VAGINAL ONE (16:15)
[2018-07-25 19:11] LABS: Basophils % (A) 0 %; Eosinophils # (A) 0.1 k/uL (0-0.7); Eosinophils % (A) 1 %; HCT 37.9 % (34.0-46.0); HGB 12.6 gm/dL (11.4-16.0); Lymphocytes # (A) 1.7 k/uL (1.0-4.8); Lymphocytes % (A) 15 %; MCH 29.9 pg (25.0-35.0); MCHC 33.3 g/dL (31.0-37.0); MCV 89.7 fL (80.0-100.0); Mean Platelet Volume 9.9; Monocytes # (A) 0.6 k/uL (0-1.0); Monocytes % (A) 5 %; Neutrophils % (A) 77 %; Platelet Count 247 k/uL (150-450); RBC 4.22 m/uL (3.80-5.40); WBC 11.7 k/uL (3.8-10.6)
[2018-07-25 19:15] LABS: Uric Acid 5.2 mg/dL (3.7-7.4)
[2018-07-25 19:22] VITALS: BMI 28.3
[2018-07-25 19:31] LABS: INR 0.9 (<1.2); Partial Thromboplastin Time 24.4 sec (22.0-30.0); Prothrombin Time 9.5 sec (9.0-12.0)
[2018-07-25] MEDS: LACTATED RINGERS 1,000 ML IV SCH ×2 (20:03→21:22)
[2018-07-25] MEDS ORDERED: BUTORPHANOL 1 MG/ML 1 ML VIAL IV PRN (21:23)
[2018-07-26] MEDS: LACTATED RINGERS 1,000 ML IV SCH (05:50)
[2018-07-26] MEDS ORDERED: OXYTOCIN 10 UNIT/ML 1 ML VIAL IM PRN (05:52)
[2018-07-26] MEDS ORDERED: METHYLERGONOVINE 0.2 MG/ML 1 ML AMP IM PRN (05:52)
[2018-07-26] MEDS ORDERED: TERBUTALINE 1 MG/ML VIAL SQ PRN (05:52)
[2018-07-26] MEDS ORDERED: LIDOCAINE 0.5% (PF) 5 MG/ML (50 ML SDV) SQ PRN (05:52)
[2018-07-26] MEDS ORDERED: CARBOPROST TROMETHAMINE 250 MCG/ML 1 ML AMP IM PRN (05:52)
[2018-07-26] MEDS ORDERED: LACTATED RINGERS 1,000 ML IV SCH (06:00)
[2018-07-26] MEDS ORDERED: OXYTOCIN 30 UNITS/500 ML NS 30 UNIT in SALINE 1 500ML.BAG IV SCH (06:00)
[2018-07-26] MEDS ORDERED: ePHEDrine SULFATE/0.9% NACL/PF 50 MG/5 ML SYRINGE IV ONE (10:45)
[2018-07-26] MEDS ORDERED: ROPIVACAINE 5MG/ML 20ML VIAL ONE (10:45)
[2018-07-26] MEDS ORDERED: fentaNYL (PF) 50 MCG/ML 5 ML AMP ONE (10:45)
[2018-07-26] MEDS ORDERED: SODIUM CHLORIDE 0.9% 100 ML BAG ONE (10:45)
[2018-07-26] MEDS ORDERED: ROPIVACAINE 100 MG, fentaNYL (PF) 200 MCG in SODIUM CHLORIDE 0.9% 76 ML EPIDURAL ONE (11:23)
[2018-07-26] MEDS ORDERED: ACETAMINOPHEN TAB 325 MG TAB PO PRN (16:50)
[2018-07-26] MEDS ORDERED: ZOLPIDEM 5 MG TAB PO PRN (16:50)
[2018-07-26] MEDS ORDERED: diphenhydrAMINE ELIXIR 25 MG/10 ML CUP PO PRN (16:50)
[2018-07-26] MEDS ORDERED: HYDROCORTISONE 2.5% RECTAL CREAM 30 GM TUBE RECTAL PRN (16:50)
[2018-07-26] MEDS ORDERED: diphenhydrAMINE 50 MG CAP PO PRN (16:50)
[2018-07-26] MEDS ORDERED: LANOLIN CREAM 5 GM TUBE TOPICAL PRN (16:50)
[2018-07-26] MEDS ORDERED: diphenhydrAMINE 50 MG/ML 1 ML VIAL IVP PRN ×2 (16:50)
[2018-07-26] MEDS ORDERED: diphenhydrAMINE 25 MG CAP PO PRN (16:50)
[2018-07-26] MEDS ORDERED: BENZOCAINE/MENTHOL SPRAY 1 GM/SPRAY AEROSOL TOPICAL PRN (16:50)
[2018-07-26] MEDS ORDERED: SIMETHICONE 80 MG CHEWABLE PO PRN (16:50)
[2018-07-26] MEDS ORDERED: WITCH HAZEL 1 EACH MED..PAD TOPICAL PRN (16:50)
--- NOTE | 2018-07-26 16:50 | P.PROBDLV ---
Vaginal Delivery Note - . Vaginal Delivery Note: This is a 23-year-old white female 2 para 0010 EDC 08/14/2018 at 37-2/7 weeks' gestation. Patient presented for Cytotec last night, for unfavorable cervix. Patient is being induced for cholestasis of , elevated fasting bile acids are noted. otherwise unremarkable, group B strep cultures negative, blood type A-, rubella status immune. Please see my dictated history and physical for details. Patient received Cytotec, 25 MCG's 2 intravaginally every 3 hours apart. She slept intermittently through the night. The following morning, this morning, artificial amniorrhexis revealed clear fluid. Oxytocin was started and titrated per hospital protocol. Patient became uncomfortable and requested epidural, this was placed per the anesthesia staff. She progressed well through the first stage of labor and was judged to be completely dilated at 1539 hours. She began the second stage of labor at that time. Patient pushed well, perineal body was prepped and draped in the usual sterile fashion. The infant's head delivered occiput anterior at 1626 hrs. He restituted accordingly. There was a nuchal cord that was reduced. The right or anterior shoulder was gently delivered from underneath the pubic symphysis at which time the oropharynx, nasopharynx, and external nares were all bulb suctioned. Patient was officially delivered of a liveborn male infant at 1627 hrs. Umbilical cord was doubly clamped and ligated, he was handed to waiting nurses for evaluation where scores of 8 and 9 at one and 5 minutes respectively were given. The placenta delivered spontaneously, it was inspected and noted to be intact with trivascular cord at 1632 hrs. Uterus is massaged. Inspection of the cervix, vagina, perineum, and perirectal areas revealed a small first-degree perineal laceration that was repaired in the usual fashion with 3-0 Vicryl. Uterus is firm and in the midline, symmetric and 18 week size upon completion of delivery. Infant weighs 6 lbs. 10 oz. or 3000 g. Patient and her are requesting circumcision further son. Placenta will be sent to pathology for history of cholestasis of .
[2018-07-26] MEDS ORDERED: OXYTOCIN 20 UNITS/1000 ML NS 1,000 ML IV SCH (17:00)
[2018-07-26] MEDS: IBUPROFEN 600 MG TAB PO PRN (20:37)
[2018-07-26] MEDS: SENNOSIDES-DOCUSATE SODIUM 1 EACH TAB PO SCH (20:39)
[2018-07-27] MEDS: IBUPROFEN 600 MG TAB PO PRN ×2 (07:38→15:30)
[2018-07-27] MEDS: SENNOSIDES-DOCUSATE SODIUM 1 EACH TAB PO SCH (07:38)
[2018-07-27 08:46] LABS: Basophils % (A) 0 %; Eosinophils # (A) 0.3 k/uL (0-0.7); Eosinophils % (A) 2 %; HCT 32.2 % (34.0-46.0); HGB 10.8 gm/dL (11.4-16.0); Lymphocytes # (A) 3.2 k/uL (1.0-4.8); Lymphocytes % (A) 18 %; MCH 30.2 pg (25.0-35.0); MCHC 33.5 g/dL (31.0-37.0); MCV 90.1 fL (80.0-100.0); Mean Platelet Volume 8.9; Monocytes # (A) 0.8 k/uL (0-1.0); Monocytes % (A) 5 %; Neutrophils % (A) 74 %; Platelet Count 208 k/uL (150-450); RBC 3.58 m/uL (3.80-5.40); RDW 13.3 % (11.5-15.5); WBC 17.6 k/uL (3.8-10.6)
[2018-07-28] MEDS: IBUPROFEN 600 MG TAB PO PRN ×3 (00:29→16:30)
[2018-07-28] MEDS: SENNOSIDES-DOCUSATE SODIUM 1 EACH TAB PO SCH ×3 (02:51→21:19)
--- NOTE | 2018-07-28 07:46 | P.DS ---
Providers Date of admission: 07/25/18 15:10 Expected date of discharge: 07/28/18 Attending physician: Cecelia Knight Primary care physician: Stated None Hospital Course: This is a 23-year-old white female 2 para 0010 EDC 08/14/2018 at 37 and one sevenths weeks' gestation. Patient was found to have cholestasis of with elevated fasting bile acids, elevated liver enzymes. Cervix was not especially favorable, therefore she was admitted for Cytotec induction. She received Cytotec intravaginally 2. was otherwise unremarkable, rubella status immune, blood type A-, group B strep cultures negative. Please see my dictated history and physical for details. Artificial amniorrhexis the following morning revealed clear fluid. Oxytocin was started and titrated per hospital protocol. She went on to deliver vag inally a liveborn male infant with scores of 8 and 9 at one and 5 minutes respectively. There was a nuchal cord 1 that was reduced. There was a small first-degree laceration that was easily repaired. Infant weighed 3000 g or 6 lbs. 10 oz. Estimated blood loss 250 mL's. Please see my dictated delivery note for details. This morning the patient is doing well. She is voiding, ambulating and passing flatus without difficulty. Her total body itching has resolved. Breasts are not engorged. She is pumping. Fundus is firm and in the midline, symmetric and 18 week size. Extremities are negative for edema. Vital signs are stable and she has remained afebrile. The infant is still in the nursery, circumcision has not yet been performed. Patient is being discharged home today in very good condition. She will follow- up with me in the office in 6 weeks. I have reminded her no intercourse, tampons or douching. She will use [id number] Advil, Aleve, or ibuprofen as needed for pain. She will call me with any fevers shakes or chills, foul smelling or copious lochia, with the passage of large blood clots, with any pain not alleviated by [id number] products or indeed with any concerns. We have briefly reviewed options for contraception and we will discuss this further in the office. Patient Condition at Discharge: Good Plan - Discharge Summary Discharge Rx Participant: No New Discharge Prescriptions: No Action Citalopram Hydrobromide [CeleXA] 20 mg PO DAILY Dextroamphetamine/Amphetamine [Adderall] 20 mg PO DAILY Pnv No.95/Ferrous Fum/Folic AC [ Multivitamin Tablet] 1 tab PO DAILY Discharge Medication List Citalopram Hydrobromide [CeleXA] 20 mg PO DAILY 12/28/16 [History] Dextroamphetamine/Amphetamine [Adderall] 20 mg PO DAILY 11/09/17 [History] Pnv No.95/Ferrous Fum/Folic AC [ Multivitamin Tablet] 1 tab PO DAILY 11/09/17 [History] Follow up Appointment(s)/Referral(s): Cecelia Knight MD [STAFF PHYSICIAN] - 6 Weeks Discharge Disposition: HOME SELF-CARE
[2018-07-28 09:47] VITALS: RESP 18
[2018-07-28 16:51] VITALS: BP 125/74; PULSE 64; TEMP 98
== END 2018-07-28 10:27 | disposition home or self-care (01) | DRG 805 ==
LOC: 4FBP 15:10
PROVIDERS: ADMIT Obstetrics & Gynecology; ATTEND Obstetrics & Gynecology
PROC: 3E0P7VZ Introduction of Hormone into Female Reproductive, Via Natural or Artificial Opening (ICD-10-PCS; 2018-07-25)
PROC: 10E0XZZ Delivery of Products of Conception, External Approach (ICD-10-PCS; principal; 2018-07-26)
PROC: 10907ZC Drainage of Amniotic Fluid, Therapeutic from Products of Conception, Via Natural or Artificial Opening (ICD-10-PCS; 2018-07-26)
PROC: 3E033VJ Introduction of Other Hormone into Peripheral Vein, Percutaneous Approach (ICD-10-PCS; 2018-07-26)
PROC: 0HQ9XZZ Repair Perineum Skin, External Approach (ICD-10-PCS; 2018-07-26)
PROC: 00HU33Z Insertion of Infusion Device into Spinal Canal, Percutaneous Approach (ICD-10-PCS; 2018-07-26)
PROC: 3E0R3BZ Introduction of Anesthetic Agent into Spinal Canal, Percutaneous Approach (ICD-10-PCS; 2018-07-26)
DX: O26.62 Liver and biliary tract disorders in childbirth (principal); K83.1 Obstruction of bile duct; Z37.0 Single live birth; Z3A.37 37 weeks gestation of pregnancy; O69.81X0 Labor and delivery complicated by cord around neck, without compression, not applicable or unspecified; O70.0 First degree perineal laceration during delivery; O99.344 Other mental disorders complicating childbirth; O99.62 Diseases of the digestive system complicating childbirth; K90.0 Celiac disease; K86.81 Exocrine pancreatic insufficiency; F98.8 Other specified behavioral and emotional disorders with onset usually occurring in childhood and adolescence; F32.9 Major depressive disorder, single episode, unspecified; F41.9 Anxiety disorder, unspecified; Z90.49 Acquired absence of other specified parts of digestive tract; Z79.899 Other long term (current) drug therapy; Z88.2 Allergy status to sulfonamides; Z91.018 Allergy to other foods; Z82.49 Family history of ischemic heart disease and other diseases of the circulatory system; Z83.3 Family history of diabetes mellitus
CPT/HCPCS: 84450; 84460; 84550; 85025; 85610; 85730; 86850; 86870; 86880; 86900; 86901; 88307

== ENCOUNTER 2018-08-02 17:59 | Emergency (ER) | payer OTHER ==
[2018-08-02 19:12] VITALS: RESP 18
[2018-08-02] MEDS ORDERED: METOCLOPRAMIDE 5 MG/ML 2 ML VIAL IVP STA (20:37)
[2018-08-02] MEDS ORDERED: SODIUM CHLORIDE 0.9% 2,000 ML IV ONE (20:37)
[2018-08-02] MEDS ORDERED: ACETAMINOPHEN TAB 500 MG TAB PO STA (20:37)
[2018-08-02] MEDS ORDERED: diphenhydrAMINE 50 MG/ML 1 ML VIAL IVP STA (20:37)
[2018-08-02] MEDS ORDERED: DEXAMETHASONE SOD PHOSPHATE 10 MG/ML 1 ML VIAL IV STA (20:37)
--- NOTE | 2018-08-02 20:58 | ED ---
General Adult HPI - General Chief complaint: Headache Stated complaint: Blood patch/headache Time Seen by Provider: 08/02/18 20:24 Source: patient Mode of arrival: ambulatory Limitations: no limitations - History of Present Illness Initial comments: Patient is a 23-year-old female who recently gave on Wednesday, who presents with a chief complaint of a headache. Patient states that she had a slowly increasing headache after giving , she states that she had an epidural. Patient did speak with the anesthesia team instructed her to come to the emergency department for a blood patch. Patient denies fever, chills, but states that she has been nauseated. She states that her headache is somewhat positional, worse if she stands up. She denies any issues with other than -induced cholestasis. She denies any history of preeclampsia or eclampsia. Vital signs are unremarkable in the emergency department. - Related Data Home Medications Medication Instructions Recorded Confirmed Pnv No.95/Ferrous Fum/Folic AC 1 tab PO BID 11/09/17 08/02/18 [ Multivitamin Tablet] Allergies Allergy/AdvReac Type Severity Reaction Status Date / Time Sulfa (Sulfonamide Allergy Rash/Hives Verified 08/02/18 20:20 Antibiotics) sulfamethoxazole Allergy Rash/Hives Verified 08/02/18 20:20 [From Bactrim] trimethoprim [From Bactrim] Allergy Rash/Hives Verified 08/02/18 20:20 gluten AdvReac Nausea Verified 08/02/18 20:20 Review of Systems ROS Statement: Those systems with pertinent positive or pertinent negative responses have been documented in the HPI. ROS Other: All systems not noted in ROS Statement are negative. Neurological: Reports: headache Past Medical History Past Medical History: No Reported History Additional Past Medical History / Comment(s): Anxiety and depression, ADD, IBS History of Any Multi-Drug Resistant Organisms: None Reported Past Surgical History: Appendectomy, Cholecystectomy Past Anesthesia/Blood Transfusion Reactions: Postoperative Nausea & Vomiting (PONV) Past Psychological History: Anxiety, Depression Smoking Status: Never smoker Past Alcohol Use History: None Reported Past Drug Use History: None Reported - Past Family History Father Family Medical History: Diabetes Mellitus, Hypertension General Exam Limitations: no limitations General appearance: alert, in no apparent distress Head exam: Present: atraumatic, normocephalic Eye exam: Present: normal appearance, PERRL, EOMI ENT exam: Present: normal exam Neck exam: Present: normal inspection Respiratory exam: Present: normal lung sounds bilaterally. Absent: respiratory distress, wheezes Cardiovascular Exam: Present: regular rate, normal rhythm GI/Abdominal exam: Present: soft. Absent: distended, tenderness Rectal exam: Present: deferred Extremities exam: Present: normal inspection Back exam: Present: normal inspection Neurological exam: Present: alert, oriented X3, CN II-XII intact Psychiatric exam: Present: normal affect, normal mood Skin exam: Present: warm, dry, intact Course Vital Signs 08/02/18 19:07 Temperature 98.1 F Pulse Rate 65 Respiratory 18 Rate Blood Pressure 124/69 O2 Sat by Pulse 99 Oximetry Medical Decision Making - Medical Decision Making Patient presents with a chief complaint of headache, status post epidural on Wednesday. On initial evaluation, vital signs are stable, patient is in no acute distress. Patient does not show any signs of eclampsia at this time. Patient treated with a headache cocktail. Case discussed with Dr. Simmons with anesthesia who states he is available to perform a blood patch. 11:44 PM On reevaluation, the patient states that she feels much better. Blood patch was performed. Patient was given precautions by anesthesia. At this time, she is stable for discharge. She was instructed to follow up with primary care in 1-2 days, return to the ED if symptoms worsen or change. Disposition Clinical Impression: Headache, Post lumbar puncture headache Disposition: HOME SELF-CARE Condition: Good Instructions (If sedation given, give patient instructions): Acute Headache (ED) Is patient prescribed a controlled substance at d/c from ED?: No Referrals: Chandana Lyon DO [Primary Care Provider] - 1-2 days
--- NOTE | 2018-08-02 22:12 | P.PN ---
Progress Note - Text Progress Note Date: 08/02/18 Patient is a 23 yo s/p epidural for labor and delivery on 07/26/18. Patient developed a mild positional headache the next few days but it got worse on Wednesday. Headache is occipital moving to the frontal area, worsening with sitting or standing. Informed consent obtained. Risks include but not limited to worsening headache or reoccurrence of headache , backache and neck discomfort, serious infection, nerve damage discussed with patient. Procedure note: Under strict sterile technique, 17g epidural needle inserted at l3-4 interspace where previous epidural was done. One attempt, no redirections. 17cc of patient's blood was injected (which was obtained using sterile technique). Injection stopped when back pressure increased. Patient to be left prone for 30 minutes Patient tolerated the procedure well
[2018-08-03 00:02] VITALS: BP 128/72; PULSE 68; TEMP 98
== END 2018-08-03 00:02 | disposition home or self-care (01) ==
LOC: EC 17:59
DX: O89.4 Spinal and epidural anesthesia-induced headache during the puerperium (principal); Z88.2 Allergy status to sulfonamides; Z91.018 Allergy to other foods
CPT/HCPCS: 99283; 62273; 96374; 96375 ×2; 96361; J1200; J1100; J2765